=== PATIENT | female | born 1960 | race Two or more races ===

== ENCOUNTER 2023-12-03 05:52 | Inpatient (IN) | payer OTHER, MEDICAID ==
[~2023-12-03] VITALS: Ht 149.9 cm; Wt 118.2 kg
[2023-12-03] MEDS: FUROSEMIDE 40 MG/4 ML VIAL IV ONE (06:45)
[2023-12-03 07:25] LABS: Basophils # (auto) 0 10 ^3/uL (0-0.2); Basophils % (auto) 0.8 % (0.0-2.0); Eosinophils # (auto) 0.2 10 ^3/uL (0-0.8); Eosinophils % (auto) 2.8 % (0.0-7.0); Hematocrit 33.5 % (36.0-46.0); Hemoglobin 10.5 g/dL (12.2-16.2); Lymphocytes # (auto) 1.8 10 ^3/uL (0.4-5.4); Lymphocytes % (auto) 29.9 % (10.0-50.0); Mean Corpuscular Hemoglobin 28.6 pg (28.0-32.0); Mean Corpuscular Hgb Conc. 31.4 g/dL (32.0-36.0); Monocytes # (auto) 0.5 10 ^3/uL (0-1.3); Monocytes % (auto) 7.7 % (0.0-12.0); Neutrophils # (auto) 3.6 10 ^3/uL (1.6-8.6); Neutrophils % (auto) 58.8 % (37.0-80.0); Nucleated Red Blood Cells % 0.1 %; Red Blood Cells 3.68 10^6/uL (4.0-5.20); Red Cell Distribution Width 16.7 % (11.8-14.3); White Blood Cell 6.1 10^3/uL (4.4-10.8)
[2023-12-03 07:48] LABS: INR 1.01 (0.9-1.15); Partial Thromboplastin Time 26.2 SEC (24.5-34.5); Prothrombin Time 10.6 sec (9.3-11.8)
[2023-12-03 07:50] LABS: Alanine Aminotransferase 40 U/L (7-40); Albumin 3.5 g/dL (3.2-4.8); Alkaline Phosphatase 335 U/L (46-116); Anion Gap 5 (5-15); Aspartate Aminotransferase 69 U/L (13-40); BUN/Creatinine Ratio 27.1 (10.0-20.0); Bilirubin, Total 0.8 mg/dL (0.2-1.0); Blood Urea Nitrogen 61 mg/dL (9-23); Calcium 8.5 mg/dL (8.7-10.4); Carbon Dioxide 20 mmol/L (20-30); Chloride 100 mmol/L (98-107); Glucose 360 mg/dL (74-106); Lipase 48 U/L (12-53); Sodium 125 mmol/L (136-145); Total Protein 6.8 g/dL (5.7-8.2)
[2023-12-03] MEDS ORDERED: HYDROmorphone HCL 2 MG/ML VL/or syr IV PRN (10:45)
[2023-12-03] MEDS ORDERED: HYDROcodone-ACET 5/325MG TAB PO PRN (10:45)
[2023-12-03] MEDS ORDERED: NITROGLYCERIN 0.4 MG SL TAB SL PRN (10:45)
[2023-12-03] MEDS ORDERED: ONDANSETRON HCL 4 MG/2 ML VIAL IV PRN (10:45)
[2023-12-03] MEDS ORDERED: DOCUSATE SOD 100 MG CAP PO PRN (10:45)
[2023-12-03 11:11] LABS: Urine Bacteria NONE SEEN /hpf (None Seen); Urine Blood Negative /uL (Negative); Urine Budding Yeast MODERATE /hpf (None Seen); Urine Clarity HAZY (Clear); Urine Color Yellow (Yellow); Urine Hyaline Cast MOD /lpf (0 - 2); Urine Protein, UAD Negative (Negative); Urine Specific Gravity 1.017 (1.001-1.035); Urine Urobilinogen Normal (Negative); Urine WBC 3 /hpf (0 - 5)
[2023-12-03] MEDS ORDERED: DEXTROSE (50%) 50ML SYRG IV PRN (11:45)
[2023-12-03] MEDS: ALBUTEROL SULF 2.5 MG/0.5ML(0.5%) NEB SOLN NEB ONE (11:45)
[2023-12-03] MEDS: ALBUTEROL SULF 2.5 MG/0.5ML(0.5%) NEB SOLN ONE (11:56)
[2023-12-03] MEDS: SODIUM BICARB 8.4% 50Meq/50ml SYR Vial IV ONE (12:13)
[2023-12-03] MEDS: CALCIUM GLUC 1,000mg/50ml-NS 50 ML IV ONE (12:14)
[2023-12-03] MEDS: HEPARIN SODIUM (PORCINE) 5000 UNITS/ML 1ML VIAL SC SCH (12:14)
[2023-12-03] MEDS: SODIUM ZIRCONIUM CYCL 10 GM PAK PO ONE ×2 (12:55→16:52)
[2023-12-03] MEDS: DEXTROSE (50%) 50ML SYRG IV ONE (12:55)
[2023-12-03] MEDS: InsuLIN REG 1unit/0.01ml Soln (100units/ml) IV ONE (12:55)
[2023-12-03] MEDS: BUMETANIDE INJECTION 12.5 MG in GIVE UN-DILUTED 0 ML IV SCH ×2 (13:15→21:38)
[2023-12-03] MEDS: ALBUMIN 25% 100 ML IV SCH (13:52)
[2023-12-03] MEDS: SODIUM CHLOR 0.9% PF (SALINE LOCK) 10ML VIAL/SYR IV SCH (14:10)
[2023-12-03 14:14] VITALS: PULSE 53; RESP 17; O2SAT 100
[2023-12-03] MEDS: DOBUTamine 1000MCG/ML 250 ML IV ONE (14:31)
[2023-12-03 14:36] LABS: Chloride 102 mmol/L (98-107); Sodium 127 mmol/L (136-145)
[2023-12-03 14:37] LABS: Anion Gap 7 (5-15); Calcium 8.8 mg/dL (8.5-10.1); Carbon Dioxide 18 mmol/L (20-30)
[2023-12-03 14:42] LABS: BUN/Creatinine Ratio 22.6 (10.0-20.0); Blood Urea Nitrogen 53 mg/dL (9-23); Glucose 320 mg/dL (74-106)
[2023-12-03 15:22] LABS: Potassium 5.8 mmol/L (3.5-5.1)
[2023-12-03] MEDS: DOBUTamine 1000MCG/ML 250 ML IV SCH (15:30)
[2023-12-03] MEDS: InsuLIN REG 1unit/0.01ml Soln (100units/ml) SC SCH ×2 (17:00→22:00)
[2023-12-03] MEDS: ACCU-CHEK COMFORT CURVE STRIP VI SCH (17:00)
[2023-12-03] MEDS ORDERED: FUROSEMIDE 40 MG/4 ML VIAL IV SCH (18:00)
[2023-12-03] MEDS: NOREPINEPHRINE 8 MG/250ML KIT 250 ML IV SCH (18:53)
[2023-12-03 19:27] LABS: Protein, Urine 18.7 mg/dL (0.0-11.9)
[2023-12-03 19:29] LABS: Creatinine, Urine 214.52 mg/dL (30.0-125.0)
[2023-12-03 19:37] VITALS: RESP 13; O2SAT 96
[2023-12-03] MEDS ORDERED: DOPamine 1600MCG/ML D5W 250 ML IV SCH (21:30)
[2023-12-03] MEDS: DOPamine 1600MCG/ML D5W 250 ML IV SCH (22:18)
[2023-12-04] VITALS (9 sets, daily range): BP systolic 78–133; BP diastolic 33–52; PULSE 53–117; RESP 14–20; TEMP 95.5–97.8; O2SAT 83–100
[2023-12-04] MEDS: PHENYLEPHRINE IV 250 ML IV SCH (02:30)
[2023-12-04 05:25] LABS: Chloride 95 mmol/L (98-107); Potassium 5.4 mmol/L (3.5-5.1); Sodium 123 mmol/L (136-145)
[2023-12-04 05:26] LABS: Anion Gap 14 (5-15); Calcium 8.4 mg/dL (8.7-10.4); Carbon Dioxide 14 mmol/L (20-30)
[2023-12-04 05:31] LABS: BUN/Creatinine Ratio 25.9 (10.0-20.0)
[2023-12-04 05:32] LABS: Blood Urea Nitrogen 74 mg/dL (9-23)
[2023-12-04 05:35] LABS: Glucose 482 mg/dL (74-106)
[2023-12-04] MEDS ORDERED: DEXTROSE (50%) 50ML SYRG IV PRN ×4 (06:15→17:30)
[2023-12-04] MEDS: InsuLIN REG 1unit/0.01ml Soln (100units/ml) SC SCH ×3 (07:01→17:08)
[2023-12-04 08:08] LABS: Basophils # (auto) 0 10 ^3/uL (0-0.2); Basophils % (auto) 0.1 % (0.0-2.0); Eosinophils # (auto) 0 10 ^3/uL (0-0.8); Eosinophils % (auto) 0.1 % (0.0-7.0); Hematocrit 30.3 % (36.0-46.0); Hemoglobin 9.4 g/dL (12.2-16.2); Lymphocytes % (auto) 11.6 % (10.0-50.0); Mean Corpuscular Hemoglobin 28.7 pg (28.0-32.0); Mean Corpuscular Volume 92.6 fL (80.0-100.0); Monocytes # (auto) 0.8 10 ^3/uL (0-1.3); Monocytes % (auto) 8.7 % (0.0-12.0); Neutrophils # (auto) 6.9 10 ^3/uL (1.6-8.6); Neutrophils % (auto) 79.5 % (37.0-80.0); Red Blood Cells 3.27 10^6/uL (4.0-5.20); Red Cell Distribution Width 16.9 % (11.8-14.3); White Blood Cell 8.7 10^3/uL (4.4-10.8)
[2023-12-04 08:23] LABS: Base Excess -13.4 mmol/L (-2.0-2.0)
[2023-12-04] MEDS: SODIUM BICARB 8.4% 50Meq/50ml SYR Vial IV ONE ×4 (10:00→17:51)
[2023-12-04] MEDS: ACCU-CHEK COMFORT CURVE STRIP VI SCH ×4 (10:00→18:58)
[2023-12-04] MEDS: DEXTROSE (50%) 50ML SYRG IV ONE (10:25)
[2023-12-04] MEDS: ALBUTEROL SULF 2.5 MG/0.5ML(0.5%) NEB SOLN NEB ONE (10:26)
[2023-12-04] MEDS: LIDOCAINE 2%HCL (LOCAL ANESTH.) INJ 10ml MDV IJ ONE (12:02)
[2023-12-04] MEDS: InsuLIN REG 1unit/0.01ml Soln (100units/ml) IV ONE (12:02)
[2023-12-04] MEDS: INSULIN LANTUS (GLARGINE) 1 /0.01ml (100units/ml) SC ONE (14:09)
[2023-12-04 14:49] LABS: Lactic Acid w/Reflex 6.9 mmol/L (0.4-2.0)
[2023-12-04] MEDS: ETOMIDATE (2MG/ML) 20ML VIAL IV ONE (15:08)
[2023-12-04] MEDS: MIDAZOLAM DRIP 50 mg/50mL 50 ML IV ONE (15:14)
[2023-12-04] MEDS: MIDAZOLAM DRIP 50 mg/50mL 50 ML IV SCH (15:30)
[2023-12-04] MEDS: ROCURONIUM 10MG/ML 10ML VIAL IV ONE (16:18)
[2023-12-04 16:37] LABS: Base Excess -14.1 mmol/L (-2.0-2.0)
[2023-12-04 17:24] LABS: INR 1.11 (0.9-1.15); Prothrombin Time 11.6 sec (9.3-11.8)
[2023-12-04] MEDS: MEROPENEM 500MG IVPB 50 ML IV ONE (17:39)
[2023-12-04 18:27] LABS: Chloride 94 mmol/L (98-107); Potassium 5.5 mmol/L (3.5-5.1); Sodium 124 mmol/L (136-145)
[2023-12-04 18:28] LABS: Anion Gap 14 (5-15); Calcium 8.5 mg/dL (8.5-10.1); Carbon Dioxide 16 mmol/L (20-30)
[2023-12-04 18:33] LABS: Blood Urea Nitrogen 66 mg/dL (9-23)
[2023-12-04 18:43] LABS: Glucose 473 mg/dL (74-106)
[2023-12-04] MEDS: ALBUMIN 25% 100 ML IV SCH (18:48)
[2023-12-04] MEDS: INSULIN DRIP 100 UNIT/100ML 100 ML IV SCH (19:01)
[2023-12-04] MEDS: VASOPRESSIN 20 UNITS in SODIUM CHL 0.9% 99 ML IV SCH (19:22)
[2023-12-04] MEDS: HEPARIN SODIUM (PORCINE) 5000 UNITS/ML 1ML VIAL IV ONE (19:38)
[2023-12-04] MEDS: HEPARIN DRIP/D5W 100UNITS/ML 250 ML IV SCH (19:41)
[2023-12-04] MEDS: SODIUM CHLORIDE 0.9% 1,000 ML IV ONE (19:56)
[2023-12-04 20:37] LABS: Basophils # (auto) 0 10 ^3/uL (0-0.2); Eosinophils # (auto) 0 10 ^3/uL (0-0.8); Lymphocytes # (auto) 0.9 10 ^3/uL (0.4-5.4); Monocytes # (auto) 0 10 ^3/uL (0-1.3); Monocytes % (auto) 0.9 % (0.0-12.0); Neutrophils # (auto) 1.4 10 ^3/uL (1.6-8.6)
[2023-12-04 20:39] LABS: Basophils % (auto) 0.3 % (0.0-2.0); Eosinophils % (auto) 0.7 % (0.0-7.0); Hematocrit 27.3 % (36.0-46.0); Hemoglobin 8.2 g/dL (12.2-16.2); Lymphocytes % (auto) 38.7 % (10.0-50.0); Mean Corpuscular Hemoglobin 28.7 pg (28.0-32.0); Mean Corpuscular Hgb Conc. 30.1 g/dL (32.0-36.0); Mean Corpuscular Volume 95.2 fL (80.0-100.0); Neutrophils % (auto) 59.4 % (37.0-80.0); Nucleated Red Blood Cells % 0.4 %; Red Blood Cells 2.87 10^6/uL (4.0-5.20); White Blood Cell 2.4 10^3/uL (4.4-10.8)
[2023-12-04] MEDS: ATROPINE SULF 0.5 MG/5ML SYR ONE (20:39)
[2023-12-04] MEDS: ATROPINE SULF 1 MG/10ml SYR IV ONE (20:40)
[2023-12-04] MEDS: DOPamine 1600MCG/ML D5W 250 ML IV SCH (20:50)
[2023-12-04 21:00] LABS: Lactic Acid w/Reflex 5.1 mmol/L (0.4-2.0)
[2023-12-04] MEDS ORDERED: InsuLIN REG 1unit/0.01ml Soln (100units/ml) ONE (21:00)
[2023-12-04 21:06] LABS: INR 1.24 (0.9-1.15); Prothrombin Time 12.8 sec (9.3-11.8)
[2023-12-04 21:21] LABS: Partial Thromboplastin Time > 139.0 SEC (24.5-34.5)
[2023-12-04] MEDS: NOREPINEPHRINE BITARTRATE 32 MG in SODIUM CHL 0.9% 218 ML IV SCH (21:48)
[2023-12-04] MEDS: PHENYLEPHRINE INJ 80 MG in SODIUM CHL 0.9% 242 ML IV SCH (21:48)
[2023-12-04] MEDS: EPINEPHrine HCL 0 ML IV ONE (21:49)
[2023-12-04] MEDS: ATROPINE SULFATE 1 MG/1 ML VIAL ONE (21:56)
[2023-12-04] MEDS ORDERED: LINEZOLID 600MG/300ML 300 ML IV SCH (22:00)
[2023-12-04] MEDS: DOPamine 1600MCG/ML D5W 250 ML IV ONE (22:00)
[2023-12-04] MEDS ORDERED: MEROPENEM 500MG IVPB 50 ML IV SCH (22:00)
[2023-12-04] MEDS ORDERED: INSULIN LANTUS (GLARGINE) 1 /0.01ml (100units/ml) SC SCH (22:00)
== END 2023-12-04 21:06 ==
LOC: ER 05:52 → TELE 10:33
PROVIDERS: ADMIT Internal Medicine; ATTEND Internal Medicine
PROC: 06HY33Z Insertion of Infusion Device into Lower Vein, Percutaneous Approach (ICD-10-PCS; 2023-12-03)
PROC: 5A1935Z Respiratory Ventilation, Less than 24 Consecutive Hours (ICD-10-PCS; principal; 2023-12-04)
PROC: 0BH17EZ Insertion of Endotracheal Airway into Trachea, Via Natural or Artificial Opening (ICD-10-PCS; 2023-12-04)
PROC: 5A12012 Performance of Cardiac Output, Single, Manual (ICD-10-PCS; 2023-12-04)
DX: I13.0 Hypertensive heart and chronic kidney disease with heart failure and stage 1 through stage 4 chronic kidney disease, or unspecified chronic kidney disease (principal); I21.A1 Myocardial infarction type 2; I50.33 Acute on chronic diastolic (congestive) heart failure; I26.99 Other pulmonary embolism without acute cor pulmonale; J96.01 Acute respiratory failure with hypoxia; N17.9 Acute kidney failure, unspecified; Z68.43 Body mass index [BMI] 50.0-59.9, adult; R57.0 Cardiogenic shock; E11.22 Type 2 diabetes mellitus with diabetic chronic kidney disease; E87.5 Hyperkalemia; I25.10 Atherosclerotic heart disease of native coronary artery without angina pectoris; N18.9 Chronic kidney disease, unspecified; E66.01 Morbid (severe) obesity due to excess calories; Z95.1 Presence of aortocoronary bypass graft; Z91.148 Patient's other noncompliance with medication regimen for other reason; Z86.74 Personal history of sudden cardiac arrest; Z83.3 Family history of diabetes mellitus; Z82.3 Family history of stroke; Z87.440 Personal history of urinary (tract) infections; Z86.73 Personal history of transient ischemic attack (TIA), and cerebral infarction without residual deficits; Z88.1 Allergy status to other antibiotic agents
CPT/HCPCS: 36415; 36600; 71045; 71046; 74176; 76775; 80048; 80053; 81001; 82010; 82570; 82805; 82962; 83036; 83605; 83690; 83735; 83880; 83930; 83935; 84132; 84156; 84300; 84439; 84443; 84484; 85025; 85379; 85610; 85730; 87040; 87070; 87077; 87186; 87205; 92950; 93005; 93306; 93970; 94002; 94640; 96365; 96375; G0378; J0171; J0461; J1815; J2001; J2185; J2250; P9047